=== PATIENT | male | born 1965 | race Caucasian/White ===

== ENCOUNTER 2016-12-05 16:00 | Emergency (ER) | payer OTHER ==
[~2016-12-05] VITALS: Ht 172.7 cm; Wt 88.2 kg
[2016-12-05 16:04] VITALS: TEMP 36.7; Ht 172.7 cm; Wt 88.2 kg
[2016-12-05] MEDS ORDERED: TRAMADOL HCL 50 MG TAB PO STA (16:25)
[2016-12-05] MEDS ORDERED: CYCL10TA6 PO (16:27)
[2016-12-05] MEDS ORDERED: PRED20TA2 PO (16:27)
[2016-12-05] MEDS ORDERED: CYCLOBENZAPRINE HCL 5 MG TAB PO ONE (16:30)
[2016-12-05 17:34] VITALS: BP 155/97; PULSE 86; O2SAT 94
--- NOTE | 2016-12-05 17:46 | EMERGENCY ROOM VISIT NOTE ---
ED Visit Note First contact with patient: 16:07 CHIEF COMPLAINT: Low back pain HISTORY OF PRESENT ILLNESS: This 51-year-old male patient presents to the emergency department complaining of pain in the low back which began worsening over the past 2-3 weeks. The patient states that he recently moved to the area from [place] and was helping a family member move when he "tweeked" his back. The patient reports a long-standing history of back pain for 20 years. He states that he has bad disc disease but no new trauma. The pain was gradual in onset, is now constant and worse with movement. The patient notes the pain as dull and a 8/10. The patient has taken rel ibuprofen withoutief of the pain. The patient denies any loss of control of their bowel or bladder functions. There has been no leg numbness or weakness, and no change in sensation. No nausea or vomiting or abdominal pain. No chest pain or shortness of breath. No dysuria or increased urinary frequency. REVIEW OF SYSTEMS: A review of systems was performed with positives and pertinent negatives listed in the history of present illness. All other systems were reviewed and are negative. ALLERGIES: Penicillin MEDICATIONS: No chronic medications PMH: History of low back pain SOCIAL HISTORY: Lives in [place] with family PHYSICAL EXAM: VITALS: Vitals are noted on the nurse's note and reviewed by myself. Vital signs stable. GENERAL: White male, in no acute distress, nondiaphoretic, well-developed well- nourished. SKIN: The skin was without rashes, erythema, edema, or bruising. Capillary refill less than 2 seconds. NECK: Supple without nuchal rigidity. No cervical spine tenderness. No paraspinous muscle tenderness. HEART: Regular rate and rhythm without murmurs gallops or rubs. LUNGS: Clear to auscultation bilaterally without wheezes, rales or rhonchi. ABDOMEN: Positive bowel sounds x 4. Normal tympanic percussion. Soft, nontender, without masses or organomegaly. Gomez sign negative. MUSCULOSKELETAL: No muscle atrophy, erythema, or edema noted of the back. There is no tenderness over the lumbar spinous processes. There is no tenderness over the paraspinous muscles. There is no tenderness over the thoracic spine or paraspinous muscles. There are no muscle spasms present. Negative straight leg raise test. NEURO: Patient was alert and oriented to person place and time. Normal sensation to light and sharp touch. Deep tendon reflexes 2+ in the lower extremities. Dorsalis pedis pulse 2+ bilaterally. Strength 5/5 and equal in the bilateral lower extremities. EMERGENCY DEPARTMENT COURSE: Physical exam and history were performed. Nursing notes and EMR were reviewed. The patient appears to have back pain for the past several weeks without distinct trauma. The patient presents to the ER today at the same time as a family member who is being seen by another provider. The patient is traveling from [place] to be seen at this facility. On examination the patient does not have significant findings. There is no evidence of cauda equina or concern for abscess/infection. His pain appears to be musculoskeletal in nature. I explained that the emergency department was not able to treat ongoing and chronic pains. I will treat him here with a dose of oral tramadol, oral prednisone, and/or Flexeril. I will give him a continuation prescription of the prednisone and Flexeril. He may continue to use ibuprofen and Tylenol at home. The patient was otherwise invited back to the ER with any new, worsening, or concerning symptoms. Current/Historical Medications Scheduled Cyclobenzaprine Hcl (Flexeril), 10 MG PO TID Prednisone (Prednisone Tab), 2 TAB PO DAILY Allergies Uncoded Allergies: PENICILLIN (Allergy, Unknown, unknown, 12/05/16) States had a reaction as a child - unsure what type Vital Signs Date Time Temp Pulse Resp B/P Pulse Ox O2 Delivery O2 Flow Rate FiO2 12/05/16 16:04 36.7 91 18 163/117 95 Room Air Departure Information Impression Primary Impression: Low back pain with sciatica Dispostion Home / Self-Care Condition GOOD Prescriptions Cyclobenzaprine Hcl (FLEXERIL) 10 Mg Tab 10 MG PO TID for 7 Days, #21 TAB Prov: Aquiles Loco PA-C 12/05/16 Prednisone (Prednisone Tab) 20 Mg Tab 2 TAB PO DAILY for 5 Days, #10 TAB Prov: Aquiles Loco PA-C 12/05/16 Forms HOME CARE DOCUMENTATION FORM, IMPORTANT VISIT INFORMATION Patient Instructions My [facility] Additional Instructions You were seen and evaluated today on an emergency basis only. This is not a substitute for, or an effort to provide, complete comprehensive medical care. It is not possible to recognize and treat all injuries or illnesses in a single emergency department visit. For this reason it is recommended that you followup with your primary care physician for ongoing care and evaluation. For baseline pain relief you may alternate ibuprofen and acetaminophen every 4 hours for pain control. Take 600 mg ibuprofen (Advil) and then 4 hours later take 1000 mg acetaminophen (Tylenol). Do not take more than 3000 mg acetaminophen in a single day. Flexeril 1 tablet up to 3 times a day as needed for muscle spasms. No driving, working, or alcohol use with Flexeril. Take prednisone as prescribed You are welcome to return to the emergency department anytime with new, worsening, or concerning symptoms.
== END 2016-12-05 17:38 | disposition home or self-care (01) ==
LOC: C.EDB 16:02 → C.EDD 17:38
DX: M54.30 Sciatica, unspecified side (principal)